=== PATIENT | male | born 1990 | race Two or more races ===

== ENCOUNTER 2021-08-19 14:08 | Emergency (ER) | payer SELFPAY ==
[2021-08-19] MEDS ORDERED: ACETAMINOPHEN 325 MG TABLET (FP) PO ONE (14:30)
[2021-08-19 14:38] VITALS: BP 131/83; PULSE 90; TEMP 98.3; BMI 46.7
[2021-08-19] MEDS ORDERED: ACETAMINOPHEN 325 MG TABLET (FP) ONE (14:39)
== END 2021-08-19 15:00 | disposition home or self-care (01) ==
LOC: FER 14:08
DX: T23.202A Burn of second degree of left hand, unspecified site, initial encounter (principal); X12.XXXA Contact with other hot fluids, initial encounter
CPT/HCPCS: 99283-25